=== PATIENT | female | born 1990 | race Caucasian/White ===

== ENCOUNTER 2024-03-22 06:20 | Day surgery (SDC) | payer OTHER ==
[~2024-03-22] VITALS: Ht 162.6 cm; Wt 96.3 kg
[~2024-03-22 06:20] MED LIST: CABE0.5T PO; MULTTAB20 PO; VITA1CAP25 PO
[2024-03-22] MEDS ORDERED: MIDAZOLAM INJ 2MG/2ML VIAL As Ordered ONE (06:44)
[2024-03-22] MEDS ORDERED: fentaNYL 100 MCG/2 ML INJECTION As Ordered ONE (06:44)
[2024-03-22] MEDS ORDERED: LIDOCAINE 2% 100MG/5ML SDV (FOR ANES.) As Ordered ONE (06:49)
[2024-03-22] MEDS ORDERED: propofoL 200 MG/20 ML VIAL As Ordered ONE (06:49)
[2024-03-22] MEDS ORDERED: ROCURONIUM BROMIDE 50MG/5ML VIAL As Ordered ONE (06:50)
[2024-03-22] MEDS: LR 1,000 ML IV SCH ×2 (07:15→09:22)
[2024-03-22] MEDS: SILVER NITRATE APPLICATOR (1 = QTY 10) As Ordered ONE (07:19)
[2024-03-22] MEDS: DOXYCYCLINE HYCLATE 100MG TABLET PO ONE (07:30)
[2024-03-22] MEDS: SCOPOLAMINE 1MG TRANSDERMAL PATCH TOP ONE (07:34)
[2024-03-22] MEDS: METOCLOPRAMIDE INJ 10MG/2ML VIAL IV ONE (07:34)
[2024-03-22] MEDS ORDERED: KETOROLAC 60MG 2ML VIAL As Ordered ONE (07:51)
[2024-03-22] MEDS: LIDOCAINE 1% SDV 30ML VIAL As Ordered ONE (08:08)
[2024-03-22] MEDS: METHYLENE BLUE 0.5% (5MG/ML) 10 ML AMP (PROVAYBLUE) As Ordered ONE (08:08)
[2024-03-22] MEDS ORDERED: SUGAMMADEX SODIUM 500 MG/5 ML VIAL (BRIDION) As Ordered ONE (08:52)
[2024-03-22] MEDS ORDERED: ONDANSETRON 4MG 2ML VIAL As Ordered ONE (08:52)
[2024-03-22] MEDS ORDERED: fentaNYL 100 MCG/2 ML INJECTION IV PRN (09:15)
[2024-03-22] MEDS: ONDANSETRON 4MG 2ML VIAL IV PRN (09:36)
[2024-03-22] MEDS: oxyCODONE 5MG TAB PO PRN (09:38)
[2024-03-22] MEDS: HYDROMORPHONE HCL 0.5 MG/ 0.5 ML SYRINGE IV PRN (09:38)
[2024-03-22] MEDS ORDERED: oxyCODONE 5MG TAB PO PRN (09:50)
[2024-03-22 11:30] VITALS: BP 140/72; TEMP 97.1; O2SAT 100
== END 2024-03-22 11:30 | disposition home or self-care (01) ==
LOC: M SDC 06:20
PROVIDERS: ATTEND Obstetrics & Gynecology
DX: N80.3C2 Endometriosis of the left uterosacral ligament, unspecified depth (principal); N97.1 Female infertility of tubal origin; N94.6 Dysmenorrhea, unspecified; Z98.84 Bariatric surgery status; Z90.49 Acquired absence of other specified parts of digestive tract
CPT/HCPCS: 58558; 58662; 81025; 88305; J0665; J1100; J1170; J1885; J2250; J2405; J2765; J3010; Q9968